=== PATIENT | male | born 1980 | race Caucasian/White ===

== ENCOUNTER 2016-05-07 17:29 | Emergency (ER) | payer OTHER | END 2016-05-07 17:59 | disposition left against medical advice (07) | LOC: SED 17:29 | DX: Z53.29 Procedure and treatment not carried out because of patient's decision for other reasons (principal) ==

== ENCOUNTER 2016-10-23 11:55 | Emergency (ER) | payer OTHER ==
[~2016-10-23] VITALS: Ht 185.4 cm; Wt 72.7 kg
[2016-10-23 11:58] VITALS: BP 133/91; PULSE 89; RESP 15; O2SAT 99
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
[2016-10-23] MEDS ORDERED: HYDROmorphone 0.5 mg/0.5 mL iSecure Syringe IVPUSH PRN (12:25)
[2016-10-23 13:30] VITALS: BP 130/87; PULSE 74; RESP 20; O2SAT 100
--- NOTE | 2016-10-23 13:41 | DRSVH ---
PROCEDURE: X-RAY RIGHT SHOULDER, MINIMUM TWO VIEWS ([id number]) INDICATIONS: trauma. Possible dislocation TECHNIQUE: 3 views of the shoulder were acquired. COMPARISON: None. FINDINGS: Bones: No fractures or dislocations. The acromioclavicular joint is mildly incongruent in appearanc e suggesting mild subluxation. Visualized ribs appear intact. Soft tissues: There is mild soft tissue swelling overlying the acromioclavicular joint. No suspicious soft tissue calcifications. IMPRESSION: 1. No fractures. 2. Incongruent appearance of the acromioclavicular joint suggesting mild subluxation. Dictated by: Dennys Brink M.D. on 10/23/2016 at 13:38 Approved by: Dennys Brink M.D. on 10/23/2016 at 13:40
== END 2016-10-23 13:30 | disposition home or self-care (01) ==
LOC: SED 11:55
DX: S43.101A Unspecified dislocation of right acromioclavicular joint, initial encounter (principal); V18.0XXA Pedal cycle driver injured in noncollision transport accident in nontraffic accident, initial encounter; Y93.55 Activity, bike riding; Y92.9 Unspecified place or not applicable; Y99.8 Other external cause status; G40.909 Epilepsy, unspecified, not intractable, without status epilepticus; G89.29 Other chronic pain; M54.9 Dorsalgia, unspecified; F12.90 Cannabis use, unspecified, uncomplicated; F17.200 Nicotine dependence, unspecified, uncomplicated; Z87.828 Personal history of other (healed) physical injury and trauma; Z59.0 Homelessness